=== PATIENT | male | born 1990 | race Caucasian/White ===

== ENCOUNTER 2019-01-11 11:11 | Emergency (ER) | payer MEDICAID, OTHER ==
[2019-01-11] MEDS ORDERED: fentaNYL 250 MCG/5 ML SDV IVPUSH ONE (11:28)
[2019-01-11] MEDS ORDERED: Sodium Chloride 0.9% 10 ML Syringe FLUSH PRN (11:28)
[2019-01-11] MEDS ORDERED: fentaNYL 100 MCG/2 ML SDV IVPUSH ONE (11:55)
[2019-01-11] MEDS ORDERED: fentaNYL 100 MCG/2 ML SDV ONE (12:03)
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
[2019-01-11] MEDS ORDERED: ceFAZolin 1 GM in Sodium Chloride 0.9% 50 ML IV ONE (14:07)
[2019-01-11] MEDS ORDERED: ceFAZolin 1 GM Vial ONE (14:16)
[2019-01-11] MEDS ORDERED: Acetaminophen/HYDROcodone 325-5 MG Tab ONE (14:30)
[2019-01-11] MEDS ORDERED: Lidocaine 1% 10 ML MDV ONE (14:30)
[2019-01-11] MEDS ORDERED: Cephalexin 500 MG Cap ONE (14:30)
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
== END 2019-01-11 15:45 | disposition home or self-care (01) ==
LOC: LB.ED 11:11
DX: S61.223A Laceration with foreign body of left middle finger without damage to nail, initial encounter (principal); S61.225A Laceration with foreign body of left ring finger without damage to nail, initial encounter; S61.422A Laceration with foreign body of left hand, initial encounter; W34.00XA Accidental discharge from unspecified firearms or gun, initial encounter
CPT/HCPCS: 12001; 12041; 73120; 99284; A9270; J0690; J2001; J3010